=== PATIENT | female | born 2000 | race Caucasian/White ===

== ENCOUNTER 2023-10-24 05:01 | Emergency (ER) | payer OTHER, SELFPAY ==
[2023-10-24] MEDS ORDERED: Ondansetron ODT 4 MG TAB ONE (05:15)
[2023-10-24] MEDS ORDERED: Phenazopyridine HCl 95 MG TAB ONE ×2 (05:15→05:17)
[2023-10-24] MEDS ORDERED: Ibuprofen 200 MG TAB ONE (05:15)
[2023-10-24 05:29] LABS: Bilirubin Neg (Negative); Blood, Urine 250 (Negative); Clarity Cloudy (Clear); Glucose, Urine (Dipstick) Normal (Negative); Ketone, Urine 5 mg/dL (Negative); Leukocyte 500 (Negative); Nitrite Positive (Negative); Protein, Urine (Dipstick) 100 mg/dl (Neg-Trace); Specific Gravity, Urine 1.025 (1.005-1.030); Urobilinogen Normal mg/dL (Less than 2)
[2023-10-24] MEDS ORDERED: Nitrofurantoin Monohyd/M-Cryst 100 MG CAP PO SCH (05:30)
[2023-10-24 05:34] LABS: Pregnancy Test - Urine (BHCG) Negative (Negative); Pregu Control Background? CLEAR/WHITE (CLR/WHITE); Pregu Control Bar Appear? YES (CONTROL BAR); Specific Gravity 1.025 (1.002-1.036)
[2023-10-24 05:40] LABS: Bacteria/HPF 2+ HPF (None Seen); CAUTI Indications for Culture Dysuria,urgency,freq; RBC/HPF 21-50 HPF (0-3); Squamous Epithelial 0-3 HPF (0-3); WBC/HPF 21-50 HPF (0-3)
[2023-10-24 05:42] LABS: Urine Culture Reflex Yes Yes
== END 2023-10-24 05:46 | disposition home or self-care (01) ==
LOC: CSHERS 05:01
DX: N39.0 Urinary tract infection, site not specified (principal)
CPT/HCPCS: 81001; 81025; 87077; 87086; 87186; 99284; Q0162